=== PATIENT | female | born 1970 | race Two or more races ===

== ENCOUNTER 2016-11-20 15:59 | Emergency (ER) | payer MEDICAID ==
[~2016-11-20] VITALS: Ht 162.6 cm; Wt 109.0 kg
[~2016-11-20 15:59] MED LIST: ADVAIR 100-501 EACH PO; ALBUTEROL INH 0.3 ML AERO NEB; BACTRIM DS TABL1 TAB PO; BUPROPION SR100 MG PO; CALCIUM 600 MG1 EACH PO; CALCIUM600 M1 PO; CHOLESTEROL MED; DIOVAN80 M1 PO; ENALAPRIL MALEA10 MG PO; EXCEDRIN MIGRA1 EAC3 PO; FLEXERIL 10MG PO; GABAPENTIN300 MG PO; GLUCOPHAGE1000 MG PO; HYDROCHLOROTH12.5 M2 PO; HYDROCHLOROTHIA25 MG PO; HYDROXYZINE HCL10 M1 PO; IBUPROFEN600 MG PO; IBUPROFEN800 M1 PO; IBUPROFEN800 MG; IBUPROFEN800 MG PO; IRON325 ( 65 PO; ISOSORBIDE DINI20 M1 PO; LIPITOR10 MG PO; MEDROXYPROGESTE10 M1 PO; MELOXICAM15 MG PO; MOTRIN800 MG PO; NYSTATIN TOP; PROTONIX40 M1 PO; PROVENTIL HFA6.7 G1 INH; PROVENTIL HFA6.7 GM INH; REXULTI1 MG PO; TRIAMC TOP; ULTRAM50 M1 PO; VICTOZA 2-0.6 MG/0.1 SQ; VITAMIN B12100 MCG PO; VITAMIN C PO; VITAMIN C500 M3 PO; VITAMIN D250000 UNIT PO; VITAMIN D400 UNI1 PO; VOLTAREN GEL 1100 GM TOP; VOLTAREN100 G1 TP; ZOFRAN ODT4 MG/UDTAB PO
[2016-11-20] MEDS ORDERED: SEROQUEL200 M2 (16:11)
[2016-11-20] MEDS ORDERED: DEPAKOTE500 M1 PO (16:11)
[2016-11-20] MEDS ORDERED: LEVEMIR100 UNITS/ SC (16:11)
[2016-11-20 16:47] LABS: BASO % 0.4 % (0-2); EOS % 4.7 % (0-7); EOSINOPHIL ABSOLUTE COUNT 0.4 tho/cmm (0.0-0.7); HCT-HEMATOCRIT 43.9 % (34.0-49.0); HGB-HEMOGLOBIN 15.3 gm/dl (12.0-15.5); IMMATURE GRANULOCYTES ABSOLUTE 0.01 tho/cmm (0-0.03); IMMATURE GRANULOCYTES PERCENT 0.1 % (0-0.3); LYMPH % 30.9 % (20-45); LYMPH ABSOLUTE COUNT 2.4 tho/cmm (0.8-4.5); MCH (MEAN CORPUSCULAR HGB) 31.4 pg (28.0-32.0); MCHC MEAN CORPUSCULAR HGB CONC 34.9 % (32.0-36.0); MCV (MEAN CELL VOLUME) 90.1 fl (82.0-96.0); MEAN PLATELET VOLUME 10.6 cmc (9.4-12.4); MONOCYTE ABSOLUTE COUNT 0.5 tho/cmm (0.0-1.2); NEUTROPHIL ABSOLUTE COUNT 4.4 tho/cmm (1.6-8.0); NEUTROPHIL-AUTOMATED 4.4 tho/cmm (1.6-8.0); NEUTROPHILS % 57.9 % (40-80); PLATELET COUNT 249 tho/cmm (150-450); RED BLOOD COUNT 4.87 mil/cmm (4.00-5.20); WHITE BLOOD COUNT 7.6 tho/cmm (4.0-10.0)
[2016-11-20 17:05] LABS: ANION GAP 11 mmol/L (0-20); BLOOD UREA NITROGEN 11 mg/dl (6-24); CARBON DIOXIDE-VENOUS 27 mmol/L (22-32); CHLORIDE 107 mmol/l (96-110); CREATININE 0.69 mg/dl (0.50-1.10); GLUCOSE 162 mg/dL (70-110); POTASSIUM 3.8 mmol/L (3.7-5.1); SODIUM 141 mmol/L (135-145); eGFR VALUE FOR BLACK >90 mL/Min
== END 2016-11-20 17:20 ==
LOC: EDMED → EDBD 15:59 → EDMED 15:59
PROVIDERS: Emergency Medicine
DX: R07.89 Other chest pain (principal); G89.29 Other chronic pain; E11.9 Type 2 diabetes mellitus without complications; I10 Essential (primary) hypertension; E78.5 Hyperlipidemia, unspecified; Z90.49 Acquired absence of other specified parts of digestive tract; F17.210 Nicotine dependence, cigarettes, uncomplicated
CPT/HCPCS: J1885; J2060